=== PATIENT | female | born 1990 ===

== ENCOUNTER 2021-12-15 22:52 | Emergency (ER) | payer MEDICAID ==
--- NOTE | 2021-12-15 23:07 | NUR ---
PT CAME TO HAVE HER RIGHT BICEP ASSESSED FOR A REMOVED IV PLACED AT [facility] . PT REPORTS HER SURGON FROM [facility] SENT HER TO THE ER AND SAID SHE WAS GOING TO GET AN ULTRA SOUND . PT HAD CONCERNS THAT SHE HAD A BLOOD CLOT TO HER OLD IV SITE . PT RIGHT BICEP WITH SLIGHT REDNES AND WARM TO TOUCH . PT STATED THAT SHE WAS HOSPITALIZED AT [facility] FOR 4 DAYS AND THE IV WAS REMOVED AT DISCHARGE , PT REPORTED TAHT SHE DELAYED HER GALLBLADDER SURGERY TILL NEXT TUESDAY DUE TO HER WEDDING PLANS . PT VERY DEMANDING . PT ASKING HOW LONG HER WAIT WILL BE AND STATED TAHT HER SURGON FROM [facility] INSISTED SHE HAVE A ULTA SOUND DONE AND THAT US WHY SHE IS HER . ASK THE PATIENT IF HER SURGON CALLED srms OR SPOKE TO ANY md AT THIS FACILITY . PT REPLIED NO , HE TOLD ME TO COME TO THE ER AND TELL THEM I NEED AND WAN T AN us DONE. eDUCATED THE PT ON S/S OF INFECTION . ADVISED THE PT TO HAVE HER RIGHT ARM SSESED BY THE MD TO R/O INFECTION OR COMPLICATIONS . PT STATED " I AM HERE FOR AN US , THATS WHAT I CAME FOR " THIS RECORDER REPLIED . THE ER MD WILL ASSSESS AND DETERMINE IF AN US IS NEEDED , IF AN US IS NEEDED THE TECH WILL BE CALLED IN . PT VERY ABRUPTLY STOOD UP AND SAID " IM LEAVING THEN , I CAME FOR AN US AND IF I CANT HAVE ONE I WILL GO SOME WHERE ELSE " THIS RECORDER ADVISED THE PATIENT TO BE SEEN ADN THAT THEIR ARE RISKS TO NOT BEING EVALUATED INCLUDING . PT REPLIED " I DONT CARE I DONT WANT TO BE SEEN , IM LEAVING " PT AMBULATED OFF UNIT [facility]
--- NOTE | 2021-12-16 00:25 | NUR ---
PT CAME TO BE SEEN FOR PAIN TO THE RIGHT BICEP SECONDARY TO IV REMOVAL FROM [facility] ON TUESDAY . PT REPORTS SHE WAS SENT TO THE ER BY HER SURGEN TO HAVE AN US OF HER RIGHT UPPER EXTREMITY PT DISCONTINUED IV SITE IS SLIGHTLY SWOLLEN WITH REDNESS. PT REPORTS IV WAS IN USE FOR 4 DAYS AT [facility] IN [facility] . SHE WAS HOSPITALIZED FOR GALL BLADDDER ISSUES. SHE STATES HER SURGREY WAS DELAYED 2 WEEKS SO SHE COULD ATTTEND HER WEDDING . PT VERY DEMANDIN G. PT STATES SHE WANTS AN US . THEI RECORDER ASKED P[T IF HER SURGRON HAD CONTACTED srms OR ANY OF OUR PROVIDERS TO ARRNAGE AN US . PT REPLIED "NO , BUT THATS WHAT I WANT ADN THATSWHAT I CAME FOR " [place] RECORDER ADVISED PT THAT THE MD AT THIS FACILITY WILL ASSESS AN DETERMINE IF AN US IS NEEDED AND THAT PATIENT CAN NOT COME IN AND DEMAND STUDIES . PT GOT VERY HOSTILE AND STATED THEN SHE DID NOT WNAT TO BE SEEN . PT WAS EDUCATED ON THE S/S OF INFECTION ADN ADVISED TO HAVE HER RIGHT ARM EVALUATED AND ASSESSED . PT EDUCATED TAHT IF SHE DID NOT GET MD EVALUATION THAT SHE COULD CAUSE HARM TO HERSLEF EVEN POSSSIBLE , IF THE SITE NEEDED MEDICAL ATTENTION . PT VERBALIZED I DO NOT WAN TO BE SEEN . I LEAVING VS WERER NOT EVEN TAKEN PT AMBULATED OFF UNIT WITH HER BOYFRIEND [facility] ,
== END 2021-12-16 00:33 | disposition left against medical advice (07) ==
LOC: ER 22:53
DX: R60.0 Localized edema (principal); Z53.21 Procedure and treatment not carried out due to patient leaving prior to being seen by health care provider